=== PATIENT | male | born 1950 | race Asian ===

== ENCOUNTER 2017-03-23 09:20 | Inpatient (IN) | payer OTHER ==
[~2017-03-23] VITALS: Ht 180.3 cm; Wt 71.0 kg
[2017-03-23] VITALS (11 sets, daily range): BP systolic 85–172; BP diastolic 56–106
[~2017-03-23 09:20] MED LIST: APR20I IV; COZ25 PO; ECO81 PO; LAC PO; LEV500 PO; LEVAQUIN750 MG PO; LIPI20 PO; MEDDP PO; METOPROLOL TART25 M1 PO; OMEPRAZOLE40 M1 PO; PROTONIX40 MG/Pac1 PO; PROVENTIL0.09 MG/A1 INH; PULMICORT180 MCG/Ac INH; QVAR0.08 MG/Ac IH; SIMVASTATIN20 M1 PO; VENTOLIN H0.09 MG/A1 IH
--- NOTE | 2017-03-23 09:20 | NUR ---
PT IS A 67 YEAR OLD MALE, PRESENTS TO ED FROM HOME VIA [facility], WITH C/O SHORTNESS OF BREATH SINCE 0700 TODAY. PER MEDICS, PT WAS FOUND IN TRIPOD POSITION WITH RESPIRATIONS OF 30 INITILALLY, FAMILY CALLED 911. PT HAS HX OF PRESVIOUS INTUBATION Nov. PT WAS 140 SINUS TACH EN ROUTE. PT LUNG SOUNDS HAD WHEEZE BILATERALLY PER MEDIC, WAS INITIATED ON NEBULIZER TREATMENT, NO CHANGE, PT WAS PLACED ON C-PAP MACHINE BY MEDICS EN ROUTE. PT ARRIVED INTO ED ON C-PAP MACHINE. LUNG SOUNDS HAVE WHEEZE BILATERALLY. PT HOOKED TO FULL NUTRITION PROGRAM INSTRUCTOR.
--- NOTE | 2017-03-23 09:20 | NUR ---
PT INTUBATED BY DR. SANTOS. ETMODIATE 20MG IVP PER DR. SANTOS, MEDICATION PUSHED BY PILI RN. ROCERONIUM 100MG IVP PER DR. SANTOS, MEDICATION PUSHED INTO LEFT WRIST IV BY PILI RN. PT INTUBATED WITHOUT DIFFICULTY, 7.5 TUBE, POSITIVE COLOR CHANGE, POSITIVE AUSCULTATION OF LUNG SOUNDS CONFIRMED BY DR. SANTOS, TUBING AT 23CM AT RIGHT LIP.
--- NOTE | 2017-03-23 09:25 | NUR ---
VENT SETTING PER DR. SANTOS, TIDAL VOLUME AT 400, RESPIRATION RATE AT 20, 100% 02, PEEP OF 5.
[2017-03-23 09:38] LABS: BASOPHIL % 0.4 % (0-2)
[2017-03-23] MEDS ORDERED: INCRUSE EL62.5 MCG/A IH (09:38)
[2017-03-23 09:44] LABS: PLATELET COUNT 425 x10^3mcL (130-400)
[2017-03-23 09:46] LABS: CALCIUM 9.4 mg/dL (8.5-10.1); CARBON DIOXIDE 28.6 mmol/L (21-32); CREATININE SERUM 1.4 mg/dL (0.7-1.3); POTASSIUM SERUM 4.9 mmol/L (3.5-5.1)
[2017-03-23 09:51] LABS: ALBUMIN 4.1 g/dL (3.4-5.0); BILIRUBIN TOTAL 0.9 mg/dL (0.20-1.00); TOTAL PROTEIN, SERUM 8.2 g/dL (6.4-8.2)
[2017-03-23 10:09] LABS: UA SPECIFIC GRAVITY 1.015 (1.005-1.035); microscopic required? YES; urine erythrocyte TRACE (NEGATIVE)
--- NOTE | 2017-03-23 10:12 | NUR ---
PT TO BE INTUBATED PER DR. SANTOS.
[2017-03-23] MEDS ORDERED: BAYER ASPIRIN R81 MG PO (10:27)
[2017-03-23] MEDS ORDERED: PREDNISONE20 MG PO (10:27)
[2017-03-23] MEDS ORDERED: LOSARTAN POTASS25 M1 PO (10:27)
--- NOTE | 2017-03-23 10:30 | NUR ---
RECIEVED REPORT FROM MOISE IN ED FOR TARA WHO WAS UPSTAIRS TRANSFERRING HIS PATIENT. ALL QUESTIONS AND CONCERNS ADDRESSED. SANAZ PHIPPS WILL CALL WITH CT HEAD RESULTS. REPORT WILL BE GIVEN TO SANAZ PACHECO ONCE BACK ON UNIT.
--- NOTE | 2017-03-23 10:40 | NUR ---
GAVE REPORT TO EDMOND YO IN ICU, TARA YO WILL BE PRIMARY RN, WILL CALL BACK WHEN RESULTS FOR CT HAVE COME IN.
[2017-03-23 10:42] LABS: AMPHETAMINE QUAL UR NONE DETECTED (NEG <=1000)
[2017-03-23 10:49] LABS: CHOLESTEROL/HDL RATIO 4.1
[2017-03-23 10:53] LABS: FREE T4 1.37 ng/dL (0.76-1.46); FREE THYROXINE INDEX 4.3 ug/dL (1.4-4.5); T3 TOTAL 1.28 ng/mL
--- NOTE | 2017-03-23 11:02 | NUR ---
PT TO AND FRMO CT VIA PHYLLIS, ACCOMPANIED BY KLAUS GUEVARA, MOISE YO, AND HITESH ULLOA, WITHOUT INCIDENCE.
--- NOTE | 2017-03-23 11:04 | NUR ---
SPOKE WITH TARA YO FROM ICU, INFORMED HIM THAT CT OF HEAD IS CLEAR. WILL TRANSPORT.
--- NOTE | 2017-03-23 11:15 | NUR ---
PT PRESENTED TO ICU @ 1115 ON GURNEY ACCOMPANIED BY ED RNS. PT IS INTUBATED AND NOT ON SEDATION. PT IS UNRESPONSIVE, DOES NOT RESPOND TO VOICE OR PAINFUL STIMULI. PERRLA, 4MM BRISK. SIZE 7.5 ETT INTACT AND SECURED, 23 @ LL. ETT TO VENT, AC MODE: RATE 18, TV 400, PEEP 5, FIO2 30%. LUNG SOUNDS ARE FINE WHEEZES BILATERALLY, DIMINISHED TO BASES. BREATHING IS EVEN AND UNLABORED. SINUS TACH. S1 S2 HEART SOUNDS AUSCULTATED. PULSES MODERATE X4. CAP REFILL < 3 S. SKIN IS WARM AND MUNSON. NO EDEMA NOTED. SKIN IS INTACT. ABD IS SOFT AND FLAT. BOWEL SOUNDS ACTIVE X4Q. CARR INTACT AND DRAINING VIA GRAVITY. URINE IS CLEAR AND YELLOW, ADEQUATE OUTPUT. NO S/SX OF PAIN AT THIS TIME. WILL CONTINUE TO MONITOR.
--- NOTE | 2017-03-23 12:10 | NUR ---
VENT SETTINGS CHANGED BY DR. ARROYO AT THIS TIME. AC 18, VT 400, PEEP +5, FIO2 30%, PEAK FLOW 60. WILL MONITOR.
--- NOTE | 2017-03-23 13:29 | NUR ---
DR MANUEL AND US TECH AT BEDSIDE TO PERFORM CENTRAL LINE PLACEMENT. TIME OUT DONE.
--- NOTE | 2017-03-23 15:18 | NUR ---
PT'S DAUGHTERS AT BEDSIDE. UPDATED ON PT STATUS. QUESTIONS AND CONCERNS ADDRESSED.
--- NOTE | 2017-03-23 17:34 | NUR ---
NUTREN PULM INITIATED AT 10 CC/HR.
--- NOTE | 2017-03-23 19:05 | NUR ---
RECEIVED BEDSIDE REPORT FROM TARA YO. QUESTIONS AND CONCERNS ADDRESSED AT THIS TIME. WILL ASSUME CARE. PT IS IN ICU BED 3 IN SEMI CASTRO. PT IS INTUBATED AND SEDATED FENT 2MCG/KG/HR AND VERSED 2MG/HR. ETT AND OGT IN PLACE AND SECURE. PT IS ON AC MODE ON VENT. RIJ IN PLACE AND SECURE. FC IN PLACE, SECURE, PATENT, AND DRINING TO GRAVITY. PT IS REST COMFORTABLE AND SHOWS NO SIGNS OF ACUTE DISTRESS. CALL LIGHT LEFT IN REACH AND BED LEFT IN LOWEST POSITION. WILL CONTINUE TO MONITOR.
--- NOTE | 2017-03-23 20:11 | NUR ---
TF RATE INCREASED FROM 10 TO 20ML/HR. RESIDUAL 15.
--- NOTE | 2017-03-23 20:28 | NUR ---
FAMILY AT BEDSIDE.
--- NOTE | 2017-03-23 22:17 | NUR ---
RT BA AT BEDSIDE.
--- NOTE | 2017-03-23 23:49 | NUR ---
TF RATE INCREASED FROM 20ML TO 30ML/HR. RESIDUAL 30ML AND REPLACED.
[2017-03-24] VITALS (19 sets, daily range): BP systolic 78–114; BP diastolic 48–82; Ht 180.3 cm; Wt 71.0 kg
--- NOTE | 2017-03-24 01:50 | NUR ---
DR MASON AT BEDSIDE. ALL QUESTIONS AND CONCERNS ADDRESSED AT THIS TIME.
--- NOTE | 2017-03-24 03:47 | NUR ---
TF RATE INCREASE FROM 30ML TO 40ML/HR. NO RESIDUAL.
[2017-03-24 05:23] LABS: BASOPHIL % 0.1 % (0-2); PLATELET COUNT 334 x10^3mcL (130-400)
[2017-03-24 05:33] LABS: CALCIUM 8.4 mg/dL (8.5-10.1); CARBON DIOXIDE 27.9 mmol/L (21-32); CREATININE SERUM 1.6 mg/dL (0.7-1.3); MAGNESIUM 2.1 mg/dL (1.8-2.4); PHOSPHOROUS 4.3 mg/dL (2.5-4.9); POTASSIUM SERUM 4.5 mmol/L (3.5-5.1)
--- NOTE | 2017-03-24 05:47 | NUR ---
DR SANCHEZ AT BEDSIDE. ALL QUESTIONS AND CONCERNS ADRESSED AT THIS TIME.
--- NOTE | 2017-03-24 07:05 | NUR ---
BEDSIDE REPORT GIVEN TO SANAZ PACHECO. ALL QUESTION AND CONCERNS ADDRESSED AT THIS TIME. ALL CARE WAS ENDORESED.
--- NOTE | 2017-03-24 07:10 | NUR ---
REPORT RECEIVED FROM JOEL YO.
--- NOTE | 2017-03-24 07:20 | NUR ---
PT IS INTUBATED AND SEDATED ON VERSED @ 1.5 MG/HR AND FENTANYL @ 1.5 MCG/KG/HR TO MRSS = 4. PT RESPONDS TO VOICE AND CAN ANSWER QUESTIONS WITH GESTURES. 7.5 ETT INTACT AND SECURED, 23 @ LL. ETT TO VENT, AC MODE: RATE 18, TV 400, PEEP 5, FIO2 30%. BREATHING IS EVEN AND UNLABORED. LUNG SOUNDS ARE INSP WHEEZES BILATERALLY, DIMINISHED TO BASES. NSR. S1 S2 HEART SOUNDS AUSCULTATED. PULSES ARE MODERATE X4. CAP REFILL < 3 S. SKIN IS WARM AND MUNSON. NO EDEMA NOTED. OGT INTACT AND SECURED, INFUSING NUTREN PULM @ 40 CC/HR, 50 CC FWF Q4H. TOLERATING WELL. GRV = 0 . ABD IS ROUNDED. BS ACTIVE X4Q. CARR INTACT AND DRAINING VIA GRAVITY, CLEAR YELLOW URINE, ADEQUATE OUTPUT. R IJ INTACT, PORTS PATENT, INFUSING NS @ 50 CC/HR. L AND R WRIST IVS INTACT AND PATENT, SALINE LOCKED. PT DENIES PAIN AT THIS TIME. REPOSITIONED. ORAL CARE DONE. HOB ELEVATED, BED LOW, SIDE RAILS UP X3, CALL LIGHT IN REACH. WILL CONTINUE TO MONITOR.
--- NOTE | 2017-03-24 08:15 | NUR ---
RECEIVED CALL FROM PT'S DAUGHTER. UPDATED ON PT STATUS. QUESTIONS AND CONCERNS ADDRESSED.
--- NOTE | 2017-03-24 08:15 | NUR ---
VERSED TITRATED TO 2 MG/HR D/T PT CONTINOUSLY BUCKING THE VENT. MRSS = 4.
--- NOTE | 2017-03-24 09:00 | NUR ---
FENTANYL TITRATED TO 2 MCG/KG/HR.
--- NOTE | 2017-03-24 09:15 | NUR ---
VERSED TITRATED TO 3 MG/HR D/T PT CONTINUOUSLY BUCKING VENT.
--- NOTE | 2017-03-24 09:46 | NUR ---
TITRATED VERSED TO 4 MG/HR, FENTANYL TITRATED TO 1 MCG/KG/HR. PT DENIES PAIN, BUT CONTINUES TO SANCHEZ VENT.
--- NOTE | 2017-03-24 09:53 | NUR ---
PATIENT ROUNDS WITH DR. PINON AND RESIDENTS. PRIMARY NURSE AND CHARGE NURSE AT BEDSIDE. UPDATES PROVIDED. POC DISCUSSED.
--- NOTE | 2017-03-24 11:00 | NUR ---
PT BATHED, CHG WIPES USED. GOWN AND LINENS CHANGED.
--- NOTE | 2017-03-24 12:30 | NUR ---
DR SANCHEZ AT BEDSIDE TO ASSESS PT. UPDATED ON PT STATUS, QUESTIONS ANSWERED.
--- NOTE | 2017-03-24 12:57 | NUR ---
NOTIFIED DR SANCHEZ OF PT'S INCREASING HR. ALSO INFORMED DR SANCHEZ ABOUT PT'S RECENT COMPLAINT OF ITCHINESS ON THE ABD. AWAITING ORDERS.
--- NOTE | 2017-03-24 13:35 | NUR ---
NATHALY ORDER RECEIVED. GIVEN TO PT, HR = 117.
--- NOTE | 2017-03-24 14:00 | NUR ---
PT OBSERVED TO BE SCRATCHING ABD INTENSELY. PT ACKNOWLEDGED THAT HE WAS ITCHY. BENADRYL PRN GIVEN.
--- NOTE | 2017-03-24 14:48 | NUR ---
INFORMED DANIEL THAT HR STILL HIGH, HR = 116 AT THIS TIME. AWAITING ORDERS.
--- NOTE | 2017-03-24 17:48 | NUR ---
DR MASON AT BEDSIDE TO ASSESS PT. UPDATED ON PT STATUS, QUESTIONS ANSWERED.
--- NOTE | 2017-03-24 18:49 | NUR ---
DAUGHTER IS AT BEDSIDE TO SEE PT. UPDATED ON PT STATUS, QUESTIONS AND CONCERNS ADDRESSED.
--- NOTE | 2017-03-24 19:05 | NUR ---
JOY BESIDE REPORT FROM SANAZ PACHECO. ALL QUESTIONS AND CONCERNS ADDRESSED AT THIS TIME. WILL ASSUME CARE. PT IS IN ICU BED 3 IN SEMI F[place]. PT IS INTUBATED AND SEDATED ON FENT AND VERSED. GCS 8. RIJ IN PLACE, SECURE, AND PATENT. PT IS ON VENT ON PCV MODE. CHEST RISE AND FALL EQUAL AND UNLABORED. VS STABLE. FC IN PLACE AND SECURE. TF IN PLACE AT 40ML/HR. PT SHOWS NO SIGNS OF ACUTE DISTRESS. WILL CONTINUE TO MONITOR.
--- NOTE | 2017-03-24 19:30 | NUR ---
REPORT GIVEN TO JOEL YO.
--- NOTE | 2017-03-24 21:03 | NUR ---
RT ATR BEDSIDE GIVING BREATHING TREATMENT
--- NOTE | 2017-03-24 21:44 | NUR ---
DR MASON AT BEDSIDE AND ALL QUESTIONS AND CONCERNS ADDRESSED AT THIS TIME.
--- NOTE | 2017-03-24 23:09 | NUR ---
SEDATION TITRATED DOWN TO TO LOW BP 75/53 (70) VERSED 1MG AND FENT 0.2MCG.
--- NOTE | 2017-03-24 23:28 | NUR ---
RT AT BEDSIDE FOR BREATHING TREATMENT.
[2017-03-25] VITALS (17 sets, daily range): BP systolic 86–132; BP diastolic 54–76
--- NOTE | 2017-03-25 00:06 | NUR ---
FAMILY CALLED UNIT AND WAS GIVEN UPDATE ON PT'S PLAN OF CARE.
--- NOTE | 2017-03-25 01:31 | NUR ---
DR MASON AT BEDSIDE. ALL QUESTIONS AND CONCERNS ADDRESSED AT THIS TIME.
--- NOTE | 2017-03-25 01:31 | NUR ---
FENT TITRATED DOWN TO 0.5MCG AND VERSED TITRATED DOWN TO 0.5MG.
--- NOTE | 2017-03-25 02:14 | NUR ---
LAB TECHN AT BEDSIDE FOR TROP LAB DRAW.
--- NOTE | 2017-03-25 03:44 | NUR ---
RT AT BEDSIDE GIVING BREATHING TREATMENT.
--- NOTE | 2017-03-25 04:45 | NUR ---
MANAGER ATHLETICS AT BEDSIDE FOR LAB DRAW.
[2017-03-25 05:28] LABS: BASOPHIL % 0.1 % (0-2); PLATELET COUNT 304 x10^3mcL (130-400)
--- NOTE | 2017-03-25 05:32 | NUR ---
RT AT BEDSIDE GIVING BREATHING TREATMENT.
[2017-03-25 05:33] LABS: RED CELL DISTRIBUTION WIDTH 15.8 % (11.5-14.5)
[2017-03-25 05:37] LABS: CARBON DIOXIDE 25.2 mmol/L (21-32); MAGNESIUM 2.5 mg/dL (1.8-2.4); PHOSPHOROUS 5.1 mg/dL (2.5-4.9); POTASSIUM SERUM 5.1 mmol/L (3.5-5.1)
--- NOTE | 2017-03-25 06:02 | NUR ---
DR SANCHEZ AT BEDSIDE. ALL QUESTION AND CONCERNS ADDRESSED AT THIS TIME. ORDERED NS RATE INCREASED FROM 100ML/HR TO 150ML/HR 1L BOLUS AT 500ML/HR.
--- NOTE | 2017-03-25 06:06 | NUR ---
SHOE PARTS CASER AT BEDSIDE FROM CXR.
--- NOTE | 2017-03-25 07:22 | NUR ---
BEDSIDE REPORT GIVEN TO SANAZ PACHECO. ALL QUESTIONS AND CONCERNS ADDRESSED AT THIS ITME. ALL CARE WAS ENDORSED.
--- NOTE | 2017-03-25 07:30 | NUR ---
REPORT RECEIVED FROM JOEL YO.
--- NOTE | 2017-03-25 08:19 | NUR ---
PT IS INTUBATED AND SEDATED ON VERSED @ 0.5 MG/HR AND FENTANYL @ 0.5 MCG/KG/HR TO MRSS = 3. PT RESPONDS TO VOICE AND CAN RESPOND TO QUESTIONS THROUGH GESTURES. PUPILS ARE 2MM SLUGGISH BILATERALLY. ETT AND OGT INTACT AND SECURED. ETT TO VENT, PRESSURE CONTROL: RATE 18, PEEP 5, IP 22, FIO2 30%. BREATHING IS EVEN AND SLIGHTLY LABORED W/ NOTED ABD MOVEMENT ON INHALATION. LUNG SOUNDS ARE INSP AND EXP WHEEZES BILATERALLY. SINUS TACH. S1 S2 AUSCULTATED. PULSES MODERATE X4. CAP REFILL < 3 S. SKIN IS WARM AND MUNSON. NO EDEMA NOTED. R IJ INTACT, PORTS PATENT, AND DRESSING CDI. NS INFUSING @ 150 CC/HR. ABD IS FIRM AND DISTENDED. BOWEL SOUNDS HYPOACTIVE. OGT INFUSING NUTREN PULM @ 40 CC/HR. TOLERATING WELL, GRV = 20. ACRR INTACT AND DRAINING VIA GRAVITY. URINE IS CLEAR AND YELLOW, POOR OUTPUT. NO C/O OR S/SX OF PAIN AT THIS TIME. REPOSITIONED Q2H. ORAL CARE DONE. HOB ELEVATED, BED LOW, SIDE RAILS UP X3, CALL LIGHT IN REACH. WILL CONTINUE TO MONITOR.
--- NOTE | 2017-03-25 09:44 | NUR ---
DR EDUARDO AND RESIDENTS ON UNIT MAKING ROUNDS. PT SEEN, QUESTIONS ANSWERED.
--- NOTE | 2017-03-25 09:47 | NUR ---
PATIENT ROUNDS WITH DR. PINON AND RESIDENTS. PRIMARY NURSE AND CHARGE NURSE AT BEDSIDE TO DISCUSS POC. UPDATES PROVIDED.
--- NOTE | 2017-03-25 11:04 | NUR ---
PT'S DAUGHTER IS AT BEDSIDE TO SEE PT. UPDATED ON PT STATUS. QUESTIONS AND CONCERNS ADDRESSED.
[2017-03-25 12:16] LABS: CALCIUM 7.6 mg/dL (8.5-10.1); CARBON DIOXIDE 24.2 mmol/L (21-32); CREATININE SERUM 2.2 mg/dL (0.7-1.3); POTASSIUM SERUM 4.8 mmol/L (3.5-5.1)
--- NOTE | 2017-03-25 12:33 | NUR ---
PT STARTED HAVING C/O OF SOB. ORAL SUCTIONED PT WELL DEEP SUCTION. SCANT AMOUNT OF SECRETIONS. SOB WAS RELIEVED FOR ABOUT 10 MINS AFTER THAT BUT CAME BACK. PT'S LUNGS SOUNDS ARE INSP AND EXP WHEEZES TO BILATERAL LUNGS, DIMINISHED TO BASES. CALLED KENNY GUEVARA WHO CAME AND STARTED A BREATHING TX. TITRATED VERSED TO 1MG/HR.
--- NOTE | 2017-03-25 19:05 | NUR ---
RECEIVED BEDSIDE REPORT FROM SANAZ PACHECO. ALL QUESTIONS AND CONCERNS ADDRESSED AT THIS TIME. WILL ENDORSE CARE. [facility]. PT IS INTUBATED AND SEDATED ON FENT AND VERSED. EYES OPEN SPONTANEOULSLY. ETT AND OGT IN PLACE AND SECURE. RIJ IN PLACE AND SECURE. PT IN ON VENT PCV. CHEST RISE AND FALL EQUAL AND UNLABORED. FC IN PLACE AND SECURE. PT SHOWS NOT SIGNS OF ACUTE DISTRESS AT THIS TIME. WILL CONTINUE TO MONITOR. BED LEFT IN LOWEST POSITION AND CALL LIGHT LEFT IN REACH.
--- NOTE | 2017-03-25 19:18 | NUR ---
REPORT GIVEN TO JOEL YO, QUESTIONS ANSWERED.
--- NOTE | 2017-03-25 20:39 | NUR ---
RT AT BEDSIDE FOR BREATHING TREATMENT.
--- NOTE | 2017-03-25 20:45 | NUR ---
FAMILY CALLED FOR PT UPDATE. ALL QUESTION AND CONCERNS ADDRESSED.
--- NOTE | 2017-03-25 22:33 | NUR ---
RT AT BEDSIDE FOR BREATHING TREATMENT.
[2017-03-26] VITALS (12 sets, daily range): BP systolic 110–154; BP diastolic 56–80
--- NOTE | 2017-03-26 00:06 | NUR ---
RT AT BEDSIDE FOR BREATHING TREATMENT.
--- NOTE | 2017-03-26 01:32 | NUR ---
PT RESTING COMFORTABLY. NO SIGNS OF ACUTE DISTRESS. WILL CONTINUE TO MONITOR.
--- NOTE | 2017-03-26 04:18 | NUR ---
RT AT BEDSIDE GIVING BREATHING TREATMENT.
--- NOTE | 2017-03-26 05:27 | NUR ---
DR RODGERS AT BEDSIDE. ALL QUESTION AND CONCERNS ADDRESSED AT THIS TIME.
--- NOTE | 2017-03-26 05:36 | NUR ---
DR SANCHEZ AT BEDSIDE. ALL QUESTION AND CONCERNS ADDRESSED AT THIS TIME.
[2017-03-26 05:37] LABS: BASOPHIL % 0.2 % (0-2); PLATELET COUNT 264 x10^3mcL (130-400)
[2017-03-26 05:41] LABS: CALCIUM 7.8 mg/dL (8.5-10.1); CARBON DIOXIDE 26.2 mmol/L (21-32); CREATININE SERUM 1.5 mg/dL (0.7-1.3); POTASSIUM SERUM 5.1 mmol/L (3.5-5.1)
[2017-03-26 05:42] LABS: RED CELL DISTRIBUTION WIDTH 16.2 % (11.5-14.5)
--- NOTE | 2017-03-26 07:15 | NUR ---
REPORT RECEIVED FROM NOC SHIFT RN. UPDATES PROVIDED, ALL QUESTIONS ANSWERED ALL CONCERNS ADDRESSED. WILL CONTINUE TO MONITOR PATIENT.
--- NOTE | 2017-03-26 07:30 | NUR ---
PATIENT ASSESSED AT THIS TIME. PATIENT OPENS EYES SPONTANEOUSLY, FOLLOWS COMMANDS APPROPRIATELY BUT IS NONVERBAL DUE TO INTUBATION. PUPILS ARE 3 MM AND BRISK BILATERALLY. PATIENT HAS NO HX OF CVA OR ALZHEIMERS. PATIENT IS SEDATED AT THIS TIME WITH FENT AT 0.5 MCG/KG/HR AND VERSED 1.5 MG/HR. RSS OF 4 NOTED. PATIENT HAS RIJ IN PLACE, TRACHEA IS MIDLINE, EYES ARE BULGING AND SCLERAL EDEMA NOTED. PATIENT HAS NO EDEMA ELSEWHERE. PERIPHERAL PULSES ARE STRONG DARION, CAP REFILL IS <3 SECONDS THROUGHOUT AND SKIN COLOR IS CONSISTENT WITH ETHNICITY. S1 AND S2 NOTED, CHEST WALL IS STABLE AND PATIENT IS IN NSR. PATIENT IS ORALLY INTUBATED WITH 7.5 ETT THAT IS 23 LL. PATIENT IS ON THE VENT ON PRESSURE CONTROL WITH THE FOLLOWING SETTINGS: PRESS 22, RATE 18, FIO2 30% AND PEEP 5. LUNG SOUNDS ARE EXPIRATORY WHEEZES THROUGHOUT. PATIENT ABDOMEN IS DISTENDED AND FIRM AND SHOWS NO SIGNS OF PAIN UPON PALPATION. NO BM NOTED AT THIS TIME. PATIENT HAS OGT IN PLACE THAT IS TAPED AND SECURED AND IS INFUSING NUTREN PULMONARY AT A RATE OF 40 ML/HR WITH 50 ML FWF Q4 HOURS. RESIDUAL OF 0 ML REMOVED AND REPLACED. PATIENT HAS GENERALIZED WEAKNESS AND NO OBVIOUS CONTRACTURES OR DEFORMITIES NOTED. PATIENT HAS CARR CATHETER IN PLACE THAT IS DRAINING YELLOW URINE TO GRAVITY. NO PENILE DISCHARGE NOTED OR SCROTOAL EDEMA. SCD'S IN PLACE. PATIENT HAS NS AT 150 ML/HR. WILL CONTINUE TO MONITOR PATIENT.
--- NOTE | 2017-03-26 08:15 | NUR ---
DR. LEUNG AND RESIDENTS ROUNDING AT THIS TIME. UPDATES PROVIDED, NO NEW ORDERS RECEIVED. WILL CONTINUE TO MONITOR PATIENT.
--- NOTE | 2017-03-26 10:00 | NUR ---
TITRATED FIO2 TO 25%. RN NOTIFIED, WILL MONITOR.
--- NOTE | 2017-03-26 10:00 | NUR ---
RT ALLY BEDSIDE WITH PATIENT AT THIS TIME, FIO2 DECREASED TO 25%. WILL CONTINUE TO MONITOR PATIENT.
--- NOTE | 2017-03-26 10:05 | NUR ---
SEDATION VACATION INITIATED AT THIS TIME. WILL CONTINUE TO MONITOR PATIENT.
--- NOTE | 2017-03-26 11:00 | NUR ---
CPAP TRIAL STARTED AT THIS TIME. PSV 12, PEEP +5, FIO2 25%. Pt TOELRATING WELL SO FAR. PARAMETERS: VT 819, RR 14, HR 87, O2 99%, BP 148/80. Pt AWAKE, ALERT AND FOLLOWING COMMANDS. GESTURES HE IS READY TO TAKE THE TUBE OUT. WILL DRAW ABG IN 1 HR IF TOLERATED. RN NOTIFIED, WILL MONITOR.
--- NOTE | 2017-03-26 11:00 | NUR ---
CPAP TRIAL STARTED AT THIS TIME. WILL CONTINUE TO MONITOR PATIENT.
--- NOTE | 2017-03-26 11:30 | NUR ---
NS DECREASED TO 50 ML/HR AT THIS TIME AND FWF INCREASED TO 150 ML Q4 HOURS PER MD ORDERS. WILL CONTINUE TO MONITOR PATIENT.
--- NOTE | 2017-03-26 11:46 | NUR ---
Initial Nutrition Assessment Dx: Acute respiratory failure 2/2 Exacerbation of COPD- intubated (03/23/17) PMHx: COPD, Asthma, Hypertension, Hyperlipidemia, GERD, Gout PSHx: None Labs: BG 161H, BUN 38H, Cr 1.5H, Alb 3.2L (03/25), Phos 2.5, Mg 2.5H, H/H 9.9/31L, PO2 115.6H, Tmax 36.9C, FO2 25, MV 9.44, P:F=462 Meds: fentanyl, phoslo, protonix, heparin, colace, NS, morphine, zofran , Current TF Order (03/23): Nutren Pulmonary via OGT at goal rate of 40ml/gu=[id number], 65g protein, 751ml free H2O. Free H2O Flush: 50ml q4hr (NGT x3 days) TF Intakes: 910ml= 1365kcals (80%), 62g protein (53%) (03/26) Residuals:0ml (03/26) I/O:4825/2400 (+2425ml) Ht: 180cm,71". Wt: 171lbs, 77.5kg. BMI: 23.8 kg/m2 (Normal) IBW: 172lb, 78kg. %IBW: 99%. UBW: unable to obtain Age: 67 Y/O M Food Allergies: NKFA Skin:intact . Keanu:12 Edema: None noted GI: abd distended and firm, bowel sounds are hypoactive. Last BM:none since (03/23) RN Trigger: unintentional wt loss >10lbs in 1 month, Poor PO intake > 3 days Pt admitted w/ Acute respiratory failure 2/2 Exacerbation of COPD- intubated (03/23/17). As per doctor's progress note 03/26- Dr. Josue likely to start CPAP Trials today. Pt seen at bedside + intubated, +ETT to vent support, +OGT in place for TF, no family present, observed Nutren Pulmonary running as ordered, spoke to RN, reports the pt is tolerating TF well, will undergo CPAP trials later today, no BM during shift- RN is aware of no BM x3 days w/ distention. Spoke to Dr. Godinez, he informed RD that the free H2O flush will be increased to 150ml q4hr, the RD acknowledge and understood. Problem with: N: None. V: None. D: none. C: Yes x3 days. Problem with: Chewing: None. Swallowing: None. Current Appetite: N/A Recent Weight Change: unable to assess. % Weight Change: unable to assess Vitamin/Supplement Use: unable to obtain Diet at Home: unable to obtain Physical Activity: unable to obtain Education: unable to obtain Estimated Nutritional Needs Based on CBW 171 lb, 77.5kg Energy: 1760 vs 1463-8449 kcal/day (PSU 2003b vs 22-25 kcal/kg for Vent Support-Weaning) Protein: 93-116 g/day (1.2-1.5 g/kg for Vent Support) Fluid: 8923-3549 ml/day (1 ml/kg for Vent Support) or per MD Nutrition Diagnosis 1. Inadequate enteral nutrition infusion related to weaning trials as evidenced by TF meeting only 53% of protein needs Intervention 1. C/W Nutren Pulmonary at goal rate of 40ml/hr to provide 1440kcals, 65g protein, 751ml free H2O. Free H2O Flush of 150ml q4hr (toal free H2O 1651ml) as per MD. 2. Prosource 2 packets daily (60kcals, 30g protein). This nutrition support regimen will provide 1470kcals, 95g protien, and 1411ml free H2O. 3. Adjust BM regimen PRN 4. If the pt is able to be extubated, consider RAIL GRINDER eval 5. If the pt is able to extubated, consider 2gm Na+- consistency as per RAIL GRINDER. Monitor/Evaluate Goal: TF intakes to meet at least 25-50% of estimated needs; Pt extubated at F/U Monitor: TF intakes/tolerance, labs, skin integrity, GI function, wt F/U in 2-3 days as HIGH risk (03/28-03/29)
--- NOTE | 2017-03-26 11:56 | NUR ---
1. C/W Nutren Pulmonary at goal rate of 40ml/hr to provide 1440kcals, 65g protein, 751ml free H2O. Free H2O Flush of 150ml q4hr (toal free H2O 1651ml) as per MD. 2. Prosource 2 packets daily (60kcals, 30g protein). This nutrition support regimen will provide 1470kcals, 95g protien, and 1411ml free H2O. 3. Adjust BM regimen PRN 4. If the pt is able to be extubated, consider GRANITE SANDBLASTER APPRENTICE eval 5. If the pt is able to extubated, consider 2gm Na+- consistency as per GRANITE SANDBLASTER APPRENTICE.
--- NOTE | 2017-03-26 12:35 | NUR ---
WEANING PARAMETERS STARTED AT THIS TIME BY RT PERALTA. WILL CONTINUE TO MONITOR PATIENT.
--- NOTE | 2017-03-26 12:37 | NUR ---
WEANING PARAMETERS: VC: 1038 NIF: -49 RSBI: 21 O2: 100%
--- NOTE | 2017-03-26 13:12 | NUR ---
PATIENT EXTUBATED AT THIS TIME. PATIENT IS SATTING WELL ON ROOM AIR. WILL CONTINUE TO MONITOR PATIENT.
--- NOTE | 2017-03-26 16:00 | NUR ---
RT KATHRYN BEDSIDE WITH PATIENT AT THIS TIME FOR BREATHING TREAMENT. WILL CONTINUE TO MONITOR PATIENT.
--- NOTE | 2017-03-26 16:25 | NUR ---
DR. SANCHEZ PAGED AT THIS TIME. BEDSIDE SWALLOW EVAL TO BE ORDERED. WILL CONTINUE TO MONITOR PATIENT.
--- NOTE | 2017-03-26 19:05 | NUR ---
REPORT GIVEN TO NOC SHIFT RN. UPDATES PROVIDED, ALL QUESTIONS ANSWERED ALL CONCERNS ADDRESSED. WILL CONTINUE TO MONITOR PATIENT.
--- NOTE | 2017-03-26 19:05 | NUR ---
RECEIVED SHIFT REPORT FROM DAY SHIFT RN AT BEDSIDE, ALL QUESTION AND CONCERNS ADDRESSED.
--- NOTE | 2017-03-26 19:20 | NUR ---
PT LYING CALMLY IN BED WITH FAMILY AT BEDSIDE. BED IN LOWEST POSITION WITH UPPER GUARD RAILS ELEVATED X2 AND HOB ELEVATED. VITAL SIGNS STABLE AT THIS TIME WITH NO S/SX OF DISTRESS NOTED. NS INFUSING AT 50 ML/HR VIA RIJ TLC. ASSESSMENT PREFORMED AT THIS TIME.
--- NOTE | 2017-03-27 02:45 | NUR ---
O2 TITRATED OFF AT THIS TIME. WILL CONTINUE TO CLOSELY MONITOR.
[2017-03-27 03:30] VITALS: BP 136/67
--- NOTE | 2017-03-27 05:01 | NUR ---
LAB AT BEDSIDE FOR BLOOD DRAW.
[2017-03-27 05:37] LABS: BASOPHIL % 0.1 % (0-2); PLATELET COUNT 280 x10^3mcL (130-400)
[2017-03-27 05:38] LABS: CALCIUM 8.3 mg/dL (8.5-10.1); CARBON DIOXIDE 31.4 mmol/L (21-32); CHLORIDE SERUM 107 mmol/L (98-107); CREATININE SERUM 1.1 mg/dL (0.7-1.3); GFR1 > 60 mL/min; GLUCOSE SERUM 126 mg/dL (74-106); MAGNESIUM 2.1 mg/dL (1.8-2.4); PHOSPHOROUS 3.1 mg/dL (2.5-4.9); POTASSIUM SERUM 4.3 mmol/L (3.5-5.1); SODIUM SERUM 142 mmol/L (136-145)
[2017-03-27 05:42] LABS: RED CELL DISTRIBUTION WIDTH 15.6 % (11.5-14.5)
--- NOTE | 2017-03-27 07:20 | NUR ---
REPORT RECEIVED FROM LORA RN. ALL QUESTIONS AND CONCERNS ADDRESSED BEDSIDE.
--- NOTE | 2017-03-27 07:30 | NUR ---
PATIENT RECEIVED SLEEPING IN BED. OPENS EYES TO VERBAL STIMULI. SPEECH CLEAR. ABLE TO MAKE NEED KNOWN. RIJ IN PLACE INFUSING NS AT 10 ML/HR. CHEST EXPANSION EVEN AND SYMMETRICAL WITH NO SOB NOTED. IV TO LEFT WRIST IN PLACE SALINE LOCKED. PATIENT C/O IV TO RIGHT WRIST HURTING. REMOVED AT THIS TIME WITH CATH INTACT. ABDOMEN ROUND AND SOFT. F/C IN PLACE DRAINING TO GRAVITY YELLOW COLORED URINE. SCD'S IN PLACE TO BLE. PATIENT ABLE TO TURN AND REPOSITION SELF. PATIENT DENIES ANY PAIN OR DISCOMFORT AT THIS TIME. WILL CONTINUE TO MONITOR.
[2017-03-27 07:40] VITALS: BP 147/84
--- NOTE | 2017-03-27 08:55 | NUR ---
DR SOUSA, RESIDENTS AND JOAN ARANDA RN ROUNDING AT THIS TIME. PATIENT PROVIDED UPDATE AND POC DISCUSSED BEDSIDE.
--- NOTE | 2017-03-27 09:05 | NUR ---
DR ARROYO AT BEDSIDE TO ASSESS PATIENT. PATIENT PROVIDED UPDATE AND POC DISCUSSED.
[2017-03-27 11:43] VITALS: BP 165/77
--- NOTE | 2017-03-27 14:46 | NUR ---
P.T. 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 S: Pt WAS SEEN AWAKE & ALERT IN BED, SPEAKS CITIZ[place]/TAGALOG, ORIENTED x4, ABLE TO FOLLOW COMMANDS, AGREEABLE & COOPERATIVE W/ P.T.; NO C/O PAIN AT THIS TIME, DEMO DIZZINESS INITIALLY GETTING UP; DAUGHTER IN ROOM & SUPPORTIVE. O:BED MOBILITY: MOD ASSIST IN SUPINE TO SIT TRANSFERS: MOD ASSIST IN SIT TO STAND W/ FWW GAIT: MIN ASSIST W/ FWW X 86 FT, ANOTHER P.T. STAFF ON SBA FOR SAFETY Pt AGREED TO SIT UP IN CHAIR AT BEDSIDE, NURSE AWARE; CALL [place], TABLE IN REACH; APPRECIATIVE. A:Pt DEMO GOOD RESPONSE TO P.T. SESSION; FALL RISK; REDUCED PACE GAIT; (B)HANDS/SWELLING; Pt EDUC ON SAFE GAIT, HEP, USE OF CALL LIGHT FOR NURSE ASSIST, VERBALIZED UNDERSTANDING, GOOD FOLLOW THRU; ZF=194/74, HR=85, O2 SAT ROOM AIR=96% P:CONT PT ONCE DAILY 6X/WK X 1 WK; POC & DX DISCUSSED W/ BEATER HEAD; WILL BENEFIT W/ P.T. AFTER ACUTE STAY. EVAL30,PVE(SET UP,SAFETY,VITAL SIGNS ASSESSMENT) GCODES:[id number] [facility] REACH SCORE:20 inches [id number] Pt WAS GIVEN THERA EXER UE/LE STACY; CONT PT EX8
[2017-03-27 15:37] VITALS: BP 125/61
--- NOTE | 2017-03-27 16:45 | NUR ---
KENNY GUEVARA AT BEDSIDE TO ADMINISTER BREATHING TX.
--- NOTE | 2017-03-27 17:13 | NUR ---
PATIENT TO BE TRANSFERRED TO [facility]. REPORT CALLED TO ARLETTE YO WITH ALL QUESTIONS AND CONCERNS ADDRESSED. PATIENT MADE AWARE OF TRANSFER. UNABELTO CONTACT PATIENT'S FAMILY AT THIS TIME. 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 BELONGINGS LIST PRINTED AND PLACED IN PATIENT'S CHART. ALL PATIENT'S BELONINGS TRANSFERRED WITH PATIENT.
[2017-03-27 17:33] VITALS: BP 152/67
--- NOTE | 2017-03-27 17:39 | NUR ---
ARRIVED FROM ICU WITH RN. TELE # 19 SR TO [facility] TIMES 4. NO C/O PAIN. PLEASANT, COOPERATIVE. CARR CATH DRAINING KVNG URINE TO BSD. CVC 3 LUMEN TO RIGHT JUGULAR CDI. VS'S STABLE.
--- NOTE | 2017-03-27 19:21 | NUR ---
CLEANED CVC SITE TO RIGHT JUGULAR WITH POVODINE IODINE AND ETOH SWABS. APPLIED NEW OPSITE AND BIO PATCH. LABLED THE OPSITE. CHECKED PATENCY OF CVC, THE WHITE PORT IS OCCLUDED, THE BLUE PORT AND BROWN PORT ARE PATENT. SL TO LEFT WRIST PATENT, CDI.
--- NOTE | 2017-03-27 19:50 | NUR ---
PT. AWAKE, ALERT, ORIENTED X4. DENIES HEADACHE OR DIZZINESS. BREATH SOUNDS CLEAR THROUGHOUT LUNG MURRAY, RESP. EVEN, UNLABORED. NO SOB. BLL DIMINISHED. PT. ON RA. RIJ TRIPLE LUMEN CENTRAL LINE W/ BLUE AND BROWN PORTS WORKING. PERIPHERAL LINE TO RT. WRIST, INTACT, FLUSHING WELL. PEDAL PULSES MODERATE DARION. ABD. SOFT AND ROUND, BOWEL SOUNDS ACTIVE. NO C/O ABD. PAIN, DENIES NAUSEA. F/C DRAINING WELL TO GRAVITY. CALL LIGHT WITHIN REACH.
[2017-03-27 21:30] VITALS: BP 137/67
--- NOTE | 2017-03-28 02:25 | NUR ---
PT. AWAKE, REQUESTING BREATHING TREATMENT. STATED THAT HE DID NOT GET HIS MIDNIGHT TREATMENT. RT. MADE AWARE. PT. IN NO RESP. DISTRESS AT THIS TIME. OCCASSIONAL DRY, NON-PRODUCTIVE COUGH NOTED. HOB 30 DEGREES. O2 SAT. 95% RA.
--- NOTE | 2017-03-28 03:39 | NUR ---
RT IN, PT. RECEIVED BREATHING, RESTING COMFORTABLY IN BED NOW. CALL LIGHT WITHIN REACH.
[2017-03-28 05:52] VITALS: BP 112/72; BP 145/75
[2017-03-28 06:15] LABS: BASOPHIL % 0.2 % (0-2); PLATELET COUNT 325 x10^3mcL (130-400)
[2017-03-28 06:37] LABS: CHLORIDE SERUM 103 mmol/L (98-107); CREATININE SERUM 1.2 mg/dL (0.7-1.3); GFR1 > 60 mL/min; GLUCOSE SERUM 124 mg/dL (74-106); POTASSIUM SERUM 4.3 mmol/L (3.5-5.1); SODIUM SERUM 141 mmol/L (136-145)
[2017-03-28 06:39] LABS: RED CELL DISTRIBUTION WIDTH 15.4 % (11.5-14.5)
--- NOTE | 2017-03-28 07:20 | NUR ---
RECEIVED PT IN NO ACUTE DISTRESS. RESP EVEN AND UNLABORED ON RA. NO SOB NOTED AT THIS TIME. DENIES PAIN. CARR CATH DRAINING TO GRAVITY. BED IN LOWEST POSITION, CALL LIGHT WITHIN REACH. WILL CONTINUE TO MONITOR.
--- NOTE | 2017-03-28 08:34 | NUR ---
MORNING MEDS TO BE GIVEN BY [facility] STUDENT NURSE WITH INSTRUCTOR.
[2017-03-28 09:48] VITALS: BP 149/81
[2017-03-28 12:00] VITALS: BP 107/73
--- NOTE | 2017-03-28 12:32 | NUR ---
PT IN NO ACUTE DISTRESS. PT CURRENTLY IN RESTROOM. NO C/O PAIN. CALL LIGHT IN REACH. WILL CONTINUE TO MONITOR.
--- NOTE | 2017-03-28 13:07 | NUR ---
P.T. NOTES Pt CLEARED PER NURSING FOR PT TREATMENT. S: PATIENT PRESENTS AWAKE, ALERT AND AGREEABLE FOR PT EVAL. NO C/O PAIN OR DIZZINESS AT THIS TIME. EAGER TO PARTICIPATE IN THERAPY, STATES "I FEEL WEAK." O: VS ASSESSMENT: BP 123/90 HR 90BPM SP02 96% ON RA. BED MOBILITY: SUP<>SIT: CGA W/VC FOR PROPER LOG ROLL. TRANSFERS: SIT<>STAND: CGA W/VC FOR HAND PLACEMENTS USING FWW. GAIT TRAINING: W/FWW APPROX 200 FT W/SBA, W/NO ASSISTIVE DEVICE, APPROX 85 FT W/CGA. IV POLE IN TOW. SEATED THERA EX: HIP FLEXION MARCHES, LUIS PUMPS, LAQ, SCAPULAR RETRACTION, REVERSE SHOULDER ROLLS, SHOULDER FLEXION/EXTENSION (GENTLE), ALL PERFORMED X 10-20 REPS BILATERALLY. Pt ASSISTED INTO SITTING UP IN CHAIR BY BEDSIDE WITH ALL LINES INTACT, CALL LIGHT IN REACH, TRAY IN FRONT. F/C INTACT. COOPERATIVE AND APPRECIATIVE OF PT CARE.NURSING AWARE. A: Pt TOLERATED PT WELL. DEMO'S GOOD IMPROVEMENT SINCE LAST PT SESSION W/INCREASED TOLERANCE TO FUNCTIONAL MOBILITY/ACTIVITIES. GOOD MOTIVATION TO PARTICIPATE. INCREASED GAIT DISTANCE TODAY W/NO C/O INCREASED FATIGUE POST GT. Pt DEMO'S NBOS AT TIMES AND REQUIRES VC FOR POSTURAL CORRECTION AND RECIPROCAL ARM SWING DURING GT. NO LOB DURING GT WITH NO ASSISTIVE DEVICE, BUT MILD UNSTEADY W/CGA REQUIRED FOR SAFETY. PLEASE TRY SPC NEXT PT SESSION THAT IS WHAT Pt UTILIZES AT HOME. P: POC REVIEWED WITH ELECTROMEDICAL EQUIPMENT REPAIRER. CONTINUE W/POC TOWARDS SET REHAB GOALS. EX 12' GT 18' TA 10 [id number]
[2017-03-28 16:28] VITALS: BP 142/79
--- NOTE | 2017-03-28 18:52 | NUR ---
PT RESTING IN BED. NO ACUTE DISTRESS. BREATHING EVEN AND UNLABORED ON RA. NO SOB NOTED. RT PROTOCOL. DENIES PAIN. IVF INFUSING. BED IN LOWEST POSITION, CALL LIGHT WITHIN REACH. WILL ENDORSE TO INCOMING SHIFT.
[2017-03-28 21:53] VITALS: BP 115/64
--- NOTE | 2017-03-29 00:15 | NUR ---
RESTING IN BED WITH EYES CL0SED. HOB ELEVATED 30 DEGREES. BREATHING EVEN AND UNLABORED. NO ACUTE DISTRESS NOTED. BED IN LOW POSITION, CALL LIGHT IN REACH. WILL CONTINUE TO MONITOR.
--- NOTE | 2017-03-29 00:45 | NUR ---
A&O X 4. ON TELE #19 READING NSR. RADIAL AND PEDAL PULSES PALPABLE. NO EDEMA NOTED. LUNG SOUNDS CLEAR AND UNLABORED. DENIES SOB. BOWEL SOUNDS ACTIVE X 4 QUADRANTS. VOIDING IN URINAL. SKIN INTACT. DENIES PAIN. SALINE LOCKED ON LEFT WRIST, NO REDNESS OR SWELLING. CENTRAL LINE TO RIGHT INTER JUGULAR, NO REDNESS OR SWELLING. BED IN LOW POSITION, CALL LIGHT WITHIN REACH. INSTRUCTED TO USE CALL LIGHT FOR ASSISTANCE.
[2017-03-29 05:54] VITALS: BP 157/83
[2017-03-29 06:05] LABS: BASOPHIL % 0.1 % (0-2); PLATELET COUNT 354 x10^3mcL (130-400)
[2017-03-29 06:15] LABS: RED CELL DISTRIBUTION WIDTH 15.3 % (11.5-14.5)
--- NOTE | 2017-03-29 06:16 | NUR ---
NURSING CO-SIGN THE DOCUMENTATION ENTERED BY THE ORIENTEE HAS BEEN REVIEWED. REVIEWED/CO-SIGNED BY: Mg Randall DOCUMENTATION DONE BY: MEAGHAN MILES
[2017-03-29 06:24] LABS: CALCIUM 9.1 mg/dL (8.5-10.1); CARBON DIOXIDE 30.4 mmol/L (21-32); CHLORIDE SERUM 102 mmol/L (98-107); CREATININE SERUM 1.1 mg/dL (0.7-1.3); GFR1 > 60 mL/min; GLUCOSE SERUM 118 mg/dL (74-106); SODIUM SERUM 140 mmol/L (136-145)
--- NOTE | 2017-03-29 07:00 | NUR ---
CENTRAL LINE DRESSING CHANGED. PT TOLERATED WELL. DENIES PAIN. DENIES SOB. BED. NO ACUTE CHANGES DURING SHIFT. BED IN LOW POSITION, CALL LIGHT IN REACH. WILL ENDORSE TO ONCOMING RN.
--- NOTE | 2017-03-29 07:25 | NUR ---
RECEIVED PT IN NO ACUTE DISTRESS. BREATHING EVEN AND UNLABORED ON RA. NO SOB NOTED. RT PROTOCOL. DENIES PAIN. BED IN LOWEST POSITION, CALL LIGHT WITHIN REACH. WILL CONTINUE TO MONITOR.
[2017-03-29 10:00] VITALS: BP 112/57
--- NOTE | 2017-03-29 12:26 | NUR ---
PT RESTING IN BED WATCHING TV. NO ACUTE DISTRESS. REPORTED FEELING A LITTLE DIZZY AFTER WORKING WITH PHYSICAL THERAPY EARLIER. DENIES DIZZINESS AT THIS TIME. DR. SANCHEZ MADE AWARE. WILL CONTINUE TO MONITOR.
[2017-03-29 14:21] VITALS: BP 116/65
--- NOTE | 2017-03-29 14:33 | NUR ---
PT NOTES TIME [id number] S: CLEARED BY RN FOR P.T. TX. PATIENT IS AWAKE & ALERT IN A SEMI CASTRO POSITION IN BED. AGREEABLE TO P.T. TX. NO C/O PAIN, BUT DOES C/O DIZZINESS. O: VS AT REST BP 131/82, HR 98 BPM, SPO2 ON RA 98% BED MOBILITY: SUPINE>SIT INDEPENDENT TRANSFER: SIT<>STAND INDEPENDENT GAIT: 225FT W/ NO A.D. CGA. PATIENT HAS 1 LOB, BUT ABLE TO CORRECT. HAS A SLIGHT TRUNKAL SWAY DURING GAIT. UNSTEADY, BUT PATIENT REFUSES TO USE FWW DESPITE EDUCATION GIVEN ON IMPROVING BALANCE & STABILITY. PATIENT VERBALIZED UNDERSTANDING. GAIT DISTANCE LIMITED D/T DIZZINESS. PATIENT FURTHER EDUCATED ON SAFETY FOR FALL PREVENTION W/ G UNDERSTANDING. COOPERATIVE & APPRECIATIVE OF CARE. STANDING BALANCE EXERCISES FORWARD LEG KICKS, HIP ABD/ADD, TANDEM STANDING W A 10 SEC HOLD, SINGLE LIMB STANCE 10 SEC HOLD, & HEEL RAISES X 10 REPS. PATIENT IS SAFELY & COMFORTABLY SITTING UP IN A CHAIR W/ CALL BUTTON & TABLE IN REACH. VS AFTER TX BP 129/99, HR 99 BPM, SPO2 ON RA 98%. RN NOTIFIED. P: DISCUSSED W/ PRIMARY PHYSICAL THERAPIST GT15', TE23'
--- NOTE | 2017-03-29 18:27 | NUR ---
PT RESTING IN BED. NO ACUTE DISTRESS. RESP EVEN AND UNLABORED ON RA. NO SOB NOTED. DENIES PAIN. BED IN LOWEST POSITION, CALL LIGHT WITHIN REACH. WILL ENDORSE TO INCOMING SHIFT.
[2017-03-29 20:55] VITALS: BP 109/59
--- NOTE | 2017-03-29 23:02 | NUR ---
A&O X 4. FAMILY AT BEDSIDE. ON TELE #19, NSR. RADIAL AND PEDAL PULSES PALPABLE. LUNG SOUNDS CLEAR. DENIES SOB. DENIES PAIN. BOWEL SOUNDS ACTIVE X 4 QUADRANTS. SKIN INTACT. LEFT WRIST IV PATENT NO REDNESS OR SWELLING. CENTRAL LINE IN RIGHT JUGULAR, CDI. BROWN PORT PATENT. WHITE AND BLUE PORT, UNABLE TO FLUSH. BED LOW POSITION, CALL LIGHT IN REACH. INSTRUCTED TO CALL FOR ASSISTANCE,
--- NOTE | 2017-03-30 01:00 | NUR ---
RESTING IN BED WITH EYES CLOSED. EASILY AWAKEN TO VERBAL STIMULI. BREATHING EVEN AND UNLABORED. DENIES SOB. DENIES PAIN. BED IN LOW POSITION, CALL LIGHT IN REACH. WILL CONTINUE TO MONITOR.
[2017-03-30 05:22] VITALS: BP 106/57
[2017-03-30 05:49] LABS: BASOPHIL % 0.1 % (0-2); PLATELET COUNT 361 x10^3mcL (130-400)
[2017-03-30 06:19] LABS: CARBON DIOXIDE 32.9 mmol/L (21-32); CHLORIDE SERUM 101 mmol/L (98-107); CREATININE SERUM 1.2 mg/dL (0.7-1.3); GFR1 > 60 mL/min; GLUCOSE SERUM 130 mg/dL (74-106); POTASSIUM SERUM 4.3 mmol/L (3.5-5.1); SODIUM SERUM 139 mmol/L (136-145)
--- NOTE | 2017-03-30 06:27 | NUR ---
RESTING WITH EYES CLOSED, EASILY AWAKENED TO VERBAL STIMULI. BREATHING EVEN AND UNLABORED. DENIES SOB. DENIES PAIN. NO ACUTE CHANGES DURING SHIFT. BED LOW POSITION, CALL LIGHT WITHIN REACH. WILL ENDORSE TO ONCOMING RN.
[2017-03-30 07:01] LABS: RED CELL DISTRIBUTION WIDTH 14.7 % (11.5-14.5)
--- NOTE | 2017-03-30 07:10 | NUR ---
AAOX4 ABLE TO VERBALIZE NEEDS, LUNGS CTA, DENIES SOB, NO RESPIRATORY DISTRESS NOTED, RT PROTOCOL IN PLACE, L/WRIST IV AND RIJ HEPLOCK, PER NIGHT RN'S REPORT, PT IS AWAITING AUTH FOR HOMEHEALTH RT TX, CALL LIGHT WITHIN REACH, WILL CONTINUE TO PROVIDE CARE.
[2017-03-30 09:11] VITALS: BP 118/63
[2017-03-30] MEDS ORDERED: LEVAQUIN500 M1 PO (10:00)
[2017-03-30] MEDS ORDERED: MEDDP PO (10:01)
[2017-03-30] MEDS ORDERED: LAC PO (10:01)
[2017-03-30] MEDS ORDERED: ALBUTEROL SULFAT3 ML NEB ×2 (11:32)
--- NOTE | 2017-03-30 13:04 | NUR ---
PT NOTES TIME: [id number] TE3',TA8',GT27',PVE((2)SAFETY STANBDY,SETUP) S:CHART REVIEWED AND CLEARED FOR PT BY RN. PATIENT IN SEMIFOWLER POSITION RESTING, DENIES PAIN OR SOB AT THIS TIME, PATIENT HEPLOCKED BY RN. PATIENT EAGER TO PARTICIPATE IN THERAPY. O:BED: INDEPENDENT SUPINE<->SIT VIA LOG ROLL WITH VC'S PROVIDED TO SAFETY COMPLETE AND MAINTAIN PROPER BODY MECHANICS. SPO2 ON RA 98%. TRANSFER: INDEPENDENT SIT<->STAND WITHOUT AD, NO DIZZINESS EXPRESSED. GAIT: SBA/SUP 240'x1 WITHOUT AD WITH EMPHASIS ON DYNAMIC GAIT AND QUICK DIRECTIONAL CHANGES, NO LOB PRESENTED. STAIR TRAINING 5 STEPS x 4 WITH NO LOB, FEW CUES PROVIDED FOR PACING, TENDS TO MAINTAIN QUICK MISA OVER STEPS. TE: SEATED KNEE EXT/FLEX WITH ANKLE ROM IN ALL PLANES, SHOULDER SHRUGS/CIRCLES, SCAPULAR RETRACTION/PROTRACTION. ( TOLERATED) PATIENT EDUCATED ON SAFETY OVER STEPS, ENERGY CONSERVATION, POSTURAL AWARENESS (ALL TOLERATE). PATIENT RETURNED SAFELY AND MADE COMFORTABLE IN BEDSIDE CHAIR, TRAY AND CALL LIGHT IN REACH. ENCOURAGED PATIENT TO USE CALL LIGHT WHEN NEEDING ASSISTANCE. PATIENT VERBALIZED UNDERSTANDING. PATIENT COOPERATIVE AND APPRECIATIVE OF PT CARE, RN MADE AWARE. P:CONT WITH POC, PROGRESS DISCUSSED WITH PRIMARY PT.
[2017-03-30 13:31] VITALS: BP 118/63
[2017-03-30 13:44] VITALS: BP 121/62
--- NOTE | 2017-03-30 16:02 | NUR ---
RIJ D/C'D, SUTURES X2 REMOVED, CATH TIP INTACT, NO BLEEDING OR PHLEBITIS NOTED, COVERED WITH TEGADERM, PATIENT TOLERATED WITHOUT DISTRESS.
[2017-03-30] MEDS ORDERED: IPRATROPIUM BROM3 M2 HHN (16:39)
--- NOTE | 2017-03-30 17:04 | NUR ---
LATE ENTRY FOR 1330: PATIENT ABLE TO TOLERATE LUNCH WITHOUT GI DISTRESS, DENIES SOB, ABLE TO AMBULATE TO RESTROOM WITH SLOW BUT STEADY GAIT, CALL LIGHT WITHIN REACH, WILL CONTINUE TO PROVIDE CARE.
--- NOTE | 2017-03-30 18:40 | NUR ---
PT DISCHARGED HOME, DISCHARGE INSTRUCTIONS REVIEWED WITH PATIENT, INCLUDING F/U APPOINTMENT WITH PCP ON Sunday04/02/17, PATIENT VERBALIZED UNDERSTANDING OF DISCHARGE INSTRUCTIONS. IV D/C'D, CATH TIP INTACT, NO BLEEDING OR PHLEBITIS NOTED, TELE MONITOR REMOVED, PATIENT ASSISTED DOWNSTAIRS VIA WHEELCHAIR BY DAUGHTER AND GOVERNMENT DOCUMENTS LIBRARIAN.
== END 2017-03-30 18:29 | disposition home health service (06) | DRG 208 ==
LOC: ED 09:20 → IC 10:01 → DU 03-27 17:55
PROVIDERS: Emergency Medicine; Family Medicine; ADMIT Family Medicine
PROC: 5A1945Z Respiratory Ventilation, 24-96 Consecutive Hours (ICD-10-PCS; principal; 2017-03-23)
PROC: 0BH17EZ Insertion of Endotracheal Airway into Trachea, Via Natural or Artificial Opening (ICD-10-PCS; 2017-03-23)
PROC: 05HM33Z Insertion of Infusion Device into Right Internal Jugular Vein, Percutaneous Approach (ICD-10-PCS; 2017-03-23)
PROC: B543ZZA Ultrasonography of Right Jugular Veins, Guidance (ICD-10-PCS; 2017-03-23)
DX: J96.01 Acute respiratory failure with hypoxia (principal); N17.0 Acute kidney failure with tubular necrosis; J44.1 Chronic obstructive pulmonary disease with (acute) exacerbation; I12.9 Hypertensive chronic kidney disease with stage 1 through stage 4 chronic kidney disease, or unspecified chronic kidney disease; N18.9 Chronic kidney disease, unspecified; F41.9 Anxiety disorder, unspecified; K21.9 Gastro-esophageal reflux disease without esophagitis; F43.0 Acute stress reaction; D72.829 Elevated white blood cell count, unspecified; M94.0 Chondrocostal junction syndrome [Tietze]; E78.5 Hyperlipidemia, unspecified; M10.9 Gout, unspecified; R00.0 Tachycardia, unspecified; Z68.25 Body mass index [BMI] 25.0-25.9, adult; Z87.891 Personal history of nicotine dependence
CPT/HCPCS: 31500; 36556; 36600; 80307; 82962; 83880; 84439; 97110-GP; 97116-GP; 97530-GP; A4628; C9113; J0360; J1200; J1642; J1644; J1956; J2250; J2270; J2920; J2930; J3010; J3490; J7030; J7040; J7050; J7613; J7620; J7626; J7644; J8597; Q0092